=== PATIENT | female | born 1975 | race Caucasian/White ===

== ENCOUNTER 2020-07-26 06:34 | Emergency (ER) | payer SELFPAY ==
[~2020-07-26] VITALS: Ht 162.6 cm; Wt 79.5 kg
[2020-07-26 07:03] VITALS: BP 147/74; Ht 162.6 cm; Wt 79.5 kg
[2020-07-26] MEDS ORDERED: VYVANSE30 MG PO (07:05)
[2020-07-26] MEDS ORDERED: LIPITOR20 MG PO (07:06)
[2020-07-26] MEDS ORDERED: BUPROPION XL300 MG PO (07:06)
[2020-07-26 08:04] LABS: BASOPHILS 0.7 % (0-2); EOSINOPHILS 1.4 % (0-7); HEMATOCRIT 37.2 % (36.0-48.0); HEMOGLOBIN 12.2 g/dL (12-16); LYMPHOCYTES 23.1 % (15-50); MCH 26.6 pg (26.0-34.0); MCHC 32.7 g/dL (31.0-37.0); MCV 81.1 fL (80.0-100.0); MEAN PLATELET VOLUME 7.2 fL (7.4-10.4); MONOCYTES 6.4 % (2-11); NEUTROPHILS 68.4 % (40-80); PLATELET COUNT 450 10x3/uL (130-400); RBC 4.59 10x6/uL (4.00-5.40); RDW 15.2 % (11.5-14.5); WBC 6.6 10x3/uL (4.8-10.8)
[2020-07-26] MEDS ORDERED: CLINDAMYCIN HC300 MG PO (08:48)
== END 2020-07-26 09:24 | disposition home or self-care (01) ==
LOC: D.ER 06:34
PROVIDERS: Family Medicine
DX: L01.00 Impetigo, unspecified (principal)